=== PATIENT | female | born 1985 | race Caucasian/White ===

== ENCOUNTER 2017-03-27 20:19 | Emergency (ER) | payer MEDICAID ==
[2017-03-27] MEDS ORDERED: Lactated Ringers 1,000 ML IV ONE ×2 (20:45→22:01)
[2017-03-27] MEDS ORDERED: Ondansetron 4 MG Tab.DIS PO ONE (20:46)
[2017-03-27] MEDS ORDERED: Acetaminophen 500 MG Tab PO ONE (20:46)
--- NOTE | 2017-03-27 22:07 | EDM.PDOC ---
ED HPI GENERAL MEDICAL PROBLEM - General Chief Complaint: Fever Stated Complaint: FEVER NOTHING TO EAT SINCE YESTERDAY Time Seen by Provider: 03/27/17 21:00 Source of Information: Reports: Patient, Old Records, RN History Limitations: Reports: No Limitations - History of Present Illness INITIAL COMMENTS - FREE TEXT/NARRATIVE: 31 yo female here with low grade fever, body aches, light-headedness since yesterday. This is the first time she has been seen. Reports nausea without vomiting. No abdominal pain. Onset Date: 03/25/17 Duration: Day(s):, Getting Worse Location: Reports: Generalized Quality: Reports: Ache Severity: Moderate Improves with: Reports: None Worsens with: Reports: Other (time) Context: Reports: Other (unknown) Associated Symptoms: Reports: Cough (minimal), Fever/Chills (low grade?), Loss of Appetite, Nausea/Vomiting (no vomiting), Weakness. Denies: Shortness of Breath Treatments PAINTING MANAGER: Reports: Other (see below) (cold med, OTC) - Related Data Allergies Allergy/AdvReac Type Severity Reaction Status Date / Time No Known Allergies Allergy Verified 02/12/13 20:16 Home Meds: Home Meds NK [No Known Home Meds] 02/12/13 [History] Past Medical History - Past Health History Medical/Surgical History: Denies Medical/Surgical History Social & Family History - Tobacco Use Years of Tobacco use: 10 Packs/Tins Daily: 0.2 - Recreational Drug Use Recreational Drug Use: No ED ROS GENERAL - Review of Systems Review Of Systems: See Below Constitutional: Reports: No Symptoms HEENT: Reports: Other (sensitive to light) Respiratory: Reports: Cough (infrequent). Denies: Shortness of Breath, Wheezing , Pleuritic Chest Pain, Sputum, Hemoptysis Cardiovascular: Reports: Lightheadedness Endocrine: Reports: No Symptoms GI/Abdominal: Reports: Decreased Appetite, Nausea. Denies: Black Stool, Bloody Stool, Constipation, Diarrhea, Distension, Flatus, Hematemesis, Hematochezia, Melena, Vomiting : Reports: No Symptoms Musculoskeletal: Reports: Neck Pain (stiffness.) Skin: Reports: No Symptoms Neurological: Reports: Headache ED EXAM, GENERAL - Physical Exam Exam: See Below Exam Limited By: No Limitations General Appearance: Alert, WD/WN, No Apparent Distress, Lethargic Eye Exam: Bilateral Eye: Normal Inspection, Other (photophobia) Ears: Normal External Exam, Normal Canal, Hearing Grossly Normal, Normal TMs Ear Exam: Bilateral Ear: Auricle Normal, Canal Normal, TM normal Nose: Normal Inspection, Normal Mucosa, No Blood Throat/Mouth: Normal Inspection, Normal Lips, Normal Oropharynx, Normal Voice, No Airway Compromise Head: Atraumatic, Normocephalic Neck: Normal Inspection, Supple, Non-Tender Respiratory/Chest: No Respiratory Distress, Lungs Clear, Normal Breath Sounds, No Accessory Muscle Use Cardiovascular: Regular Rate, Rhythm, No Edema GI/Abdominal: Normal Bowel Sounds, Soft, Non-Tender, No Distention Back Exam: Normal Inspection. No: CVA Tenderness (R), CVA Tenderness (L) Extremities: Normal Inspection, Normal Range of Motion, Non-Tender, No Pedal Edema Neurological: Alert, Oriented, CN II-XII Intact, Normal Cognition, No Motor/ Sensory Deficits Psychiatric: Normal Affect, Normal Mood Skin Exam: Warm, Dry, Intact, Normal Color, No Rash Lymphatic: No Adenopathy Course - Vital Signs Text/Narrative:: LR 1000 ml IV x 2, Zofran 4 mg po, acetaminophen 1000 mg po, Toradol 30 mg IV, Dilaudid 0.5 mg IV Offered admission, declined. Last Recorded V/S: Last Vital Signs Temp 37.2 C 03/27/17 20:25 Pulse 69 03/27/17 20:25 Resp 18 03/27/17 20:25 BP 151/89 H 03/27/17 20:25 Pulse Ox 100 03/27/17 20:25 - Orders/Labs/Meds Labs: Laboratory Tests 03/27/17 Range/Units 21:35 WBC 3.0 L (4.5-12.0) X10-3/uL RBC 4.29 (3.23-5.20) x10(6)uL Hgb 13.2 (11.5-15.5) g/dL Hct 38.6 (30.0-51.3) % MCV 90.0 (80-96) fL MCH 30.7 (27.7-33.6) pg MCHC 34.9 (32.2-35.4) g/dL RDW 11.9 (11.5-15.5) % Plt Count 148 (125-369) X10(3)uL MPV 10.6 H (7.4-10.4) fL Add Manual Diff Yes Neutrophils % (Manual) 62 (46-82) % Band Neutrophils % 1 (0-6) % Lymphocytes % (Manual) 24 (13-37) % Monocytes % (Manual) 13 H (4-12) % Meds: Medications Discontinued Medications Generic Name Dose Route Start Last Admin Trade Name Demetrius PRN Reason Stop Dose Admin Acetaminophen 1,000 mg 03/27/17 20:46 03/27/17 20:55 Tylenol Extra Strength PO 03/27/17 20:47 1,000 mg ONETIME ONE Administration Hydromorphone HCl 0.5 mg 03/27/17 23:19 Dilaudid IVPUSH 03/27/17 23:20 ONETIME ONE Lactated Ringer's 1,000 mls @ 1,000 mls/hr 03/27/17 20:45 03/27/17 21:03 Ringers, Lactated IV 03/27/17 21:44 1,000 mls/hr BOLUS ONE Administration Lactated Ringer's 1,000 mls @ 1,000 mls/hr 03/27/17 22:01 03/27/17 22:11 Ringers, Lactated IV 03/27/17 23:00 1,000 mls/hr BOLUS ONE Administration Ketorolac Tromethamine 30 mg 03/27/17 22:44 03/27/17 22:50 Toradol IVPUSH 03/27/17 22:45 30 mg ONETIME ONE Administration Ondansetron HCl 4 mg 03/27/17 20:46 03/27/17 20:55 Zofran Odt PO 03/27/17 20:47 4 mg ONETIME ONE Administration Departure - Departure Time of Disposition: 23:45 Disposition: Home, Self-Care 01 Condition: Fair Clinical Impression: Viral encephalitis - Discharge Information Referrals: Dianna Cheng NP [Primary Care Provider] - Forms: ED Department Discharge
[2017-03-27] MEDS ORDERED: Ketorolac 30 MG/ML SDV IVPUSH ONE (22:44)
[2017-03-27] MEDS ORDERED: HYDROmorphone 2 MG/ML SDV IVPUSH ONE (23:19)
[2017-03-27] MEDS ORDERED: Sodium Chloride 0.9% 10 ML Syringe FLUSH PRN (23:34)
[2017-03-28 00:14] VITALS: BP 138/81
== END 2017-03-28 | disposition home or self-care (01) ==
LOC: FB.ED 20:19
DX: A86 Unspecified viral encephalitis (principal)
CPT/HCPCS: 36415; 85025; 87804; 87807; 96361; 96374; 96375; 99283; A9270; J1170; J1885; J7050; J7120

== ENCOUNTER 2017-03-29 15:41 | Observation (INO) | payer MEDICAID ==
[2017-03-29] MEDS ORDERED: HYDROmorphone 2 MG/ML SDV IVPUSH ONE (15:54)
[2017-03-29] MEDS ORDERED: Metoclopramide 10 MG/2 ML SDV IVPUSH ONE (15:54)
[2017-03-29] MEDS ORDERED: Ketorolac 30 MG/ML SDV IVPUSH ONE (15:55)
[2017-03-29] MEDS ORDERED: diphenhydrAMINE 50 MG/ML SDV IVPUSH ONE (15:55)
[2017-03-29] MEDS ORDERED: Acetaminophen 1,000 MG in Premix Bag 1 BAG IV ONE (16:47)
[2017-03-29] MEDS ORDERED: Ondansetron 4 MG/2 ML SDV IV PRN (19:04)
[2017-03-29] MEDS ORDERED: Ondansetron 4 MG Tab.DIS PO PRN (19:04)
[2017-03-29] MEDS ORDERED: cefTRIAXone 2 GM in Sodium Chloride 0.9% 100 ML IV SCH (19:15)
[2017-03-29] MEDS: Enoxaparin 40 MG/0.4 ML Syringe SUBCUT SCH (20:30)
[2017-03-29] MEDS: cefTRIAXone 2 GM Vial IV SCH (21:24)
[2017-03-29] MEDS: Acetaminophen/oxyCODONE 325-5 MG Tab PO PRN (22:27)
[2017-03-30] MEDS: Sodium Chloride 0.9% 1,000 ML IV SCH ×3 (03:24→22:47)
[2017-03-30] MEDS: cefTRIAXone 2 GM Vial IV SCH ×2 (08:05→21:29)
--- NOTE | 2017-03-30 09:13 | CT ---
INDICATION: Unresponsive. Pain back of neck to front of head. CT HEAD WITHOUT CONTRAST: Serial contiguous 2.5 and 5-mm sections were obtained through the brain without contrast and revealed no shift of midline structures, ventricular abnormalities, or abnormal areas of density intracranially. No bleeding site or hematoma was seen. Total Exam DLP = 949.36 mGy-cm. Paranasal sinuses and, for the most part, mastoid air cells appear to be well aerated. No cranial abnormality was suggested. IMPRESSION: Normal CT brain. Report was given in person to Dr. Benitez at 1620 hours, 03/29/2017. [facility]
--- NOTE | 2017-03-30 09:22 | PCM.HP ---
H&P History of Present Illness - General Date of Service: 03/30/17 Admit Problem/Dx: Admission Diagnosis/Problem Admission Diagnosis/Problem Headache - History of Present Illness Initial Comments - Free Text/Narative: 31-year-old female who came in because of fever, headache, back pain and lethargy. She had first been seen because of a cough and upper sputum symptoms, and a chest x-ray revealed possible pneumonia of the left lower lobe. She took 1 dose of azithromycin the day prior to presentation. A day later- yesterday- she presented to the clinic with headache fever of 102.2 F,looking lethargic obtunded. She had come into contact with her sister who apparently had influenza A over the weekend. She did not have any chest pain shortness of breath. In the emergency room she had a lumbar puncture was given fluids and admitted for observation. In the morning when I saw her this morning she did not have any more headache, fever subsided she was feeling better. HEAD Pain Score (Numeric/FACES): 2 - Related Data Allergies/Adverse Reactions: Allergies Allergy/AdvReac Type Severity Reaction Status Date / Time amoxicillin [From Augmentin] Allergy Diarrhea Verified 03/29/17 19:20 clavulanic acid Allergy Diarrhea Verified 03/29/17 19:20 [From Augmentin] Home Medications: Home Meds Acetaminophen/oxyCODONE [Percocet 325-5 MG] 1 - 2 tab PO Q4H PRN #20 tab [Rx] Ondansetron [Zofran ODT] 4 mg PO Q6H PRN #7 tab.dis 03/27/17 [Rx] Azithromycin [Zithromax] 250 mg PO DAILY 03/29/17 [History] Norgestimate-Ethinyl Estradiol [Wood-Linyah 28 Tablet] 1 tab PO DAILY 03/29/17 [ History] Lysine 500 mg PO ASDIRECTED PRN 03/30/17 [History] Vitamin C/Biotin [Hair, Skin and Nails Gummies] 2 tab CHEW DAILY 03/30/17 [ History] Past Medical History - Past Health History Medical/Surgical History: Denies Medical/Surgical History Genitourinary History: Reports: Other (See Below) Other Genitourinary History: kidney stones Oncologic (Cancer) History: Reports: Other (See Below) Other Oncologic History: breast reduction Social & Family History - Tobacco Use Smoking Status *Q: Former Smoker Years of Tobacco use: 10 Packs/Tins Daily: 0.2 Used Tobacco, but Quit: Yes Month Tobacco Last Used: 120 - Caffeine Use Caffeine Use: Reports: Coffee, Energy Drinks, Soda - Recreational Drug Use Recreational Drug Use: No H&P Review of Systems - Review of Systems: Review Of Systems: ROS reveals no pertinent complaints other than HPI. General: Reports: No Symptoms HEENT: Reports: No Symptoms Pulmonary: Reports: No Symptoms Cardiovascular: Reports: No Symptoms Gastrointestinal: Reports: No Symptoms Genitourinary: Reports: No Symptoms Musculoskeletal: Reports: No Symptoms Skin: Reports: No Symptoms Psychiatric: Reports: No Symptoms Neurological: Reports: No Symptoms Hematologic/Lymphatic: Reports: No Symptoms Immunologic: Reports: No Symptoms Exam - Exam Exam: See Below - Vital Signs Vital Signs: Last Vital Signs Temp 98.1 F 03/30/17 08:00 Pulse 59 L 03/30/17 08:00 Resp 17 03/30/17 08:00 BP 103/52 L 03/30/17 08:00 Pulse Ox 100 03/30/17 08:00 Weight: 78.471 kg - Exam General: Alert, Oriented, 4 HEENT: PERRLA, Hearing Intact, Mucosa Moist & Hamill, Nares Patent, Normal Nasal Septum, Posterior Pharynx Clear, Conjunctiva Clear, EOMI, EACs Clear, TMs Clear Neck: Supple, Trachea Midline, 2 Lungs: Clear to Auscultation, Normal Respiratory Effort Cardiovascular: Regular Rate, Regular Rhythm GI/Abdominal Exam: Normal Bowel Sounds, Soft, Non-Tender, No Organomegaly, No Distention, No Abnormal Bruit, No Mass, Pelvis Stable (Female) Exam: Deferred Rectal (Female) Exam: Deferred Back Exam: Normal Inspection, Full Range of Motion, NT Extremities: Normal Inspection, Normal Range of Motion, Non-Tender, No Pedal Edema, Normal Capillary Refill Skin: Warm, Dry, Intact Neurological: Cranial Nerves Intact, Reflexes Equal Bilateral Neuro Extensive - Mental Status: Alert, Oriented x3, Normal Mood/Affect, Normal Cognition Neuro Extensive - Motor, Sensory, Reflexes: CN II-XII Intact, Normal Gait, Normal Reflexes Psychiatric: Alert, Normal Affect, Normal Mood - Patient Data Lab Results Last 24 hrs: Laboratory Results - last 24 hr 03/30/17 Range/Units 06:35 WBC 1.2 L* (4.5-12.0) X10-3/uL RBC 4.16 (3.23-5.20) x10(6)uL Hgb 12.3 (11.5-15.5) g/dL Hct 37.4 (30.0-51.3) % MCV 89.9 (80-96) fL MCH 29.5 (27.7-33.6) pg MCHC 32.8 (32.2-35.4) g/dL RDW 11.4 L (11.5-15.5) % Plt Count 143 (125-369) X10(3)uL MPV 10.8 H (7.4-10.4) fL Add Manual Diff Yes Neutrophils % (Manual) 40 L (46-82) % Lymphocytes % (Manual) 54 H (13-37) % Monocytes % (Manual) 6 (4-12) % Result Diagrams: 03/30/17 06:35 03/29/17 16:15 Imaging Impressions Last 24 hrs: I reviewed a chest x-ray image from yesterday that showed left lower lobe pneumonia. Influenza was negative 2. Spinal tap revealed no white cells in the Gram stain *Q Meaningful Use (ADM) - VTE *Q VTE Criteria *Q: - Stroke *Q Stroke Criteria *Q: - AMI *Q AMI Criteria *Q: - Problem List (1) CAP (community acquired pneumonia) SNOMED Code(s): 401068689 ICD Code: J18.9 - PNEUMONIA, UNSPECIFIED ORGANISM Status: Acute Current Visit: Yes (2) Influenza SNOMED Code(s): 0851338 ICD Code: J11.1 - FLU DUE TO UNIDENTIFIED INFLUENZA VIRUS W OTH RESP MANIFEST Status: Acute Current Visit: Yes (3) Leukopenia SNOMED Code(s): 33430926 ICD Code: D72.819 - DECREASED WHITE BLOOD CELL COUNT, UNSPECIFIED Status: Acute Current Visit: Yes Qualifiers: Leukopenia type: lymphocytopenia Qualified Code(s): D72.810 - Lymphocytopenia (4) Viral encephalitis SNOMED Code(s): 98783507 ICD Code: A86 - UNSPECIFIED VIRAL ENCEPHALITIS Status: Acute Current Visit: No Problem List Initiated/Reviewed/Updated: Yes Orders Last 24hrs: Active Orders 24 hr Category Date Time Status BASIC METABOLIC PANEL,BMP [CHEM] AM Lab 03/31/17 05:11 Ordered CBC WITH AUTO DIFF [HEME] AM Lab 03/31/17 05:11 Ordered Acetaminophen/oxyCODONE [Percocet 325-5 MG] Med 03/29/17 19:30 Active 1 - 2 tab PO Q4H PRN Azithromycin [Zithromax] 500 mg Med 03/30/17 09:30 Ordered Sodium Chloride 0.9% [Normal Saline] 250 ml IV Q24H Norgestimate-Ethinyl Estradiol [Wood-Linyah 28 Tablet] Med 03/30/17 09:00 Pending 1 tab PO DAILY cefTRIAXone [Rocephin] Med 03/29/17 20:00 Active 2 gm IV Q12H Medication Orders Acetaminophen (Tylenol) 650 mg PO Q4H PRN PRN Reason: Pain (Mild 1-3)/fever Ceftriaxone Sodium (Rocephin) 2 gm IV Q12H [facility] Last Admin: 03/30/17 08:05 Dose: 2 gm Admin: 03/29/17 21:24 Dose: 2 gm Enoxaparin Sodium (Lovenox) 40 mg SUBCUT Q24H [facility] Last Admin: 03/29/17 20:30 Dose: 40 mg Sodium Chloride (Normal Saline) 1,000 mls @ 125 mls/hr IV ASDIRECTED [facility] Last Admin: 03/30/17 03:24 Dose: 125 mls/hr Azithromycin 500 mg/ Sodium (Chloride) 250 mls @ 250 mls/hr IV Q24H [facility] Non-Formulary Medication (Norgestimate-Ethinyl Estradiol [Wood-Linyah 28 Tablet] ) 1 tab PO DAILY JE Ondansetron HCl (Zofran) 4 mg IV Q4H PRN PRN Reason: Nausea/Vomiting Ondansetron HCl (Zofran Odt) 4 mg PO Q4H PRN PRN Reason: nausea, able to take PO Oxycodone/Acetaminophen (Percocet 325-5 Mg) 1 - 2 tab PO Q4H PRN PRN Reason: Pain Last Admin: 03/29/17 22:27 Dose: 2 tab Assessment/Plan Comment:: I will start the patient azithromycin IV, fluids and pain control regimen. She did express interest to go home later today but I suggested we repeat a CBC tomorrow morning keep overnight and discharge her tomorrow
[2017-03-30] MEDS ORDERED: Azithromycin 500 MG in Sodium Chloride 0.9% 250 ML IV SCH (10:00)
[2017-03-30] MEDS: Acetaminophen 325 MG Tab PO PRN ×2 (12:11→23:19)
[2017-03-30] MEDS: Acetaminophen/oxyCODONE 325-5 MG Tab PO PRN (15:48)
--- NOTE | 2017-03-30 16:07 | ER ---
DATE SEEN: 03/29/2017 TIME SEEN: The patient was seen on arrival at 1545 hours. HISTORY OF PRESENT ILLNESS: This 31-year-old comes in with history onset of nausea without vomiting and severe headache and diarrhea x1 today. She has been sick, was seen in the clinic, started on azithromycin yesterday. She is markedly worse, she has severe headache and neck stiffness with it. She has history 2-4 days ago, onset of fever blister in right corner of her mouth. She has herpes oralis symptoms in the past. No history of herpes vaginalis or vaginitis. Current medication is azithromycin, last taken today and control pills. She has not been sexually active for many months. Last menstrual period within the last several days. She has acetaminophen with oxycodone 325/5 p.r.n. headache given to her yesterday in the clinic. PAST MEDICAL HISTORY: Negative. No diabetes. No heart disease, high blood pressure, asthma, or other serious illnesses. The patient lives with her sister. She is a 2, para 2-0-0-2. Her sister had viral illness which is influenza, approximately 2-3 days ago. The patient's viral study was negative. Repeat swab test performed today with possibility (30% of the swabs are positive with a false negative rate of up to 60% with the type of swabs used in our lab). The patient has had influenza vaccine. ALLERGIES: Amoxicillin and Augmentin. REVIEW OF SYSTEMS: Otherwise negative except as noted with headache and difficulty with vision, mild to moderate photophobia, mild sore throat. Denies sinusitis, mild rhinorrhea. Marked stiffness in the neck. No shortness of breath. Has mild cough, nonproductive. No chest pain or irregular heartbeat. GI: As noted above. Diarrhea x1. No vomiting. : As noted above. Last menstrual period several days ago. MUSCULOSKELETAL: Aches, general. PHYSICAL EXAMINATION: VITAL SIGNS: Blood pressure 177/112 on arrival, heart rate 88, respirations 30, oxygen saturation 100%, pulse 88. The patient's weight 77.5 kg, BMI is 25.3 kg/m2. Subsequent blood pressure came down to 124/54 as she received pain medicine for headache. Temperature is still elevated at 39.3 and the patient received Tylenol. HEENT: Pharynx without erythema. Throat culture obtained. TMs, normal appearance. Marked neck stiffness. Minimal cervical adenopathy. No sinus pressure or tenderness. No compromised vision. EOMs are normal. LUNGS: Clear without rales, rhonchi, or wheezes. HEART: S1, S2. No murmur. No sinus tachycardia noted. ABDOMEN: Soft. No guarding. Minimal abdominal discomfort. EXTREMITIES: Without abnormality. No pedal edema. Pulses in upper and lower extremities are normal. She has mild myalgia, generalized in upper and lower extremities. Gait appropriate. Not dizzy. The patient has marked neck stiffness, lumbar puncture was performed, opening pressure was 46, closing pressure of 39. Clear fluid noted. CSF negative for cells and bacteria on Gram stain. Since the patient has not had Lyme disease or Rickettsial or other significant tick borne lesions, those studies were not ordered. Chest x-ray was not performed as the patient has clear lungs. CT of the head was performed to rule out any [employer] CONSULTANT bleed. There is no abnormality seen on CT. ASSESSMENT: 1. No clear evidence for encephalitis or meningitis. However, she still could have aseptic meningitis. 2. Neck stiffness has improved after the patient resumed Dilaudid and her pressures have come down to normal. 3. The patient's hypertension response is secondary to pain. 4. Photophobia suggesting a migraine, but it is difficult to say if she has a migraine on top of possible encephalitis or aseptic meningitis. At this point, I presume there is a migraine component to this, but she does not have a past medical history of migraines. LABORATORY RESULTS: Today's white count is 2,700, PMNs 60, lymphocytes 28, monos 13, the latter suggests a viral component with leukopenia. Calcium 7.9, probably secondary to hyperventilation. Today, when she was initially examined, the patient had spasticity, felt related to hyperventilation. Mild transaminasemia, with AST 70, ALT 90 without bilirubin elevation. No suggestion of jaundice or hepatitis. She may have a viral component other than hepatitis, but doubt hepatitis B or hepatitis A or hepatitis C. Total protein 5.7, albumin is 2.9, both of these are decreased. Urinalysis; greater than 100 rbc's, few urine bacteria, moderate. LES is negative. Large urine occult ketones. Thought the patient's hematuria is secondary to menses. Ketonuria secondary to dehydration, acidosis, and lack of eating. The patient's CSF, glucose 54, protein is 31. No cells, Gram stain is negative. ASSESSMENT: Rule out aseptic meningitis with bacterial component. Needs to be treated prophylactically. PLAN: 1. Treat with acyclovir 10 mg/kg q.8 hours and dexamethasone 1 dose. I did not see the data or the list, I did choose 16 mg IV. UpToDate was not clear on the dosage. One dose 3 Rocephin 2 g q.12 hours. vancomycin. IV hydration. 2. Hypocalcemia, etiology secondary to hyperventilation with mild spasticity. 3. Rule out sepsis. 4. Mild transaminasemia, etiology indeterminate, probably viral mediated without hepatitis B or C or A. 5. Blood cultures are pending. CSF culture is pending. The patient is hospitalized, received IV therapy when she had her Dilaudid IV for headache the pain was reduced 1/10. She has felt much better. 6. Neck rigidity and meningismus relented. Status discussed with Dr. Valarie Gonzalez. She is aware of the patient's admission orders performed by myself as this is the end of the day and she has left for the day. Repeat influenza test was performed which was negative. /[id number] SCARLETT/TANYA AVILA
[2017-03-30] MEDS: Enoxaparin 40 MG/0.4 ML Syringe SUBCUT SCH (21:30)
[2017-03-31] MEDS: Sodium Chloride 0.9% 1,000 ML IV SCH (06:46)
[2017-03-31] MEDS: cefTRIAXone 2 GM Vial IV SCH (07:48)
[2017-03-31] MEDS: Acetaminophen/oxyCODONE 325-5 MG Tab PO PRN (08:59)
[2017-03-31] MEDS ORDERED: Ketorolac 30 MG/ML SDV IVPUSH ONE (09:10)
[2017-03-31 09:16] VITALS: BP 131/80
--- NOTE | 2017-03-31 10:02 | PN ---
DATE SEEN: 03/31/2017 CHIEF COMPLAINT: Headache and cough. HISTORY OF PRESENT ILLNESS: This is a 31-year-old female admitted for pneumonia, viral encephalitis, and possibly influenza. She was also found to have severe leukopenia. Overnight, she slept well. This morning, she still has a headache that is [id number]-up-bmkyixhe in intensity. Denies fever. Has mild sore throat and a cough that is nonproductive. REVIEW OF SYSTEMS: All other systems unremarkable. SOCIAL HISTORY: Quit smoking a month ago. MEDICATIONS: Reviewed. PHYSICAL EXAMINATION: GENERAL: She is not in any cardiopulmonary distress. VITAL SIGNS: Her blood pressure is 121/71, pulse is 52, and temperature is 98.1, max. Oxygen is 95% room air. CARDIOVASCULAR: Normal. MENTAL STATUS: Alert. NEUROLOGIC: Nonfocal with a negative Kernig's. SKIN: No pallor or jaundice. LABORATORY DATA: White cell count is up to 3.2 this morning. FINAL IMPRESSION: 1. Community-acquired pneumonia. 2. Influenza syndrome. 3. Leukopenia, possibly due to viral infection. PLAN: Ketorolac 30 mg IV once. I planned to discharge her home this morning. She will go home on Tamiflu 75 mg b.i.d. for 5 days, Omnicef 300 mg p.o. b.i.d. to complete the course for pneumonia, and she will also go home on Ultram and acetaminophen to use p.r.n. for headache. I would like her to be seen again on Monday at the office by Dianna Cheng. /[id number] ROBBY/TANYA
== END 2017-03-31 11:05 | disposition home or self-care (01) ==
LOC: FB.ED 15:41 → FB.MS 19:04
PROVIDERS: ADMIT Emergency Medicine; ATTEND Family Medicine
DX: J11.00 Influenza due to unidentified influenza virus with unspecified type of pneumonia (principal); J18.9 Pneumonia, unspecified organism; D72.819 Decreased white blood cell count, unspecified; Z79.899 Other long term (current) drug therapy
CPT/HCPCS: 36415; 62270; 70450; 80048; 80053; 81001; 82945; 84157; 85025; 87040; 87070; 87205; 87529; 87804; 96361; 96365; 96367; 96372; 96375; 99285; A9270; G0378; J0131; J0133; J0456; J0696; J1100; J1170; J1200; J1650; J1885; J2405; J2765; J7030; J7040; J7050; 96374

== ENCOUNTER 2017-08-01 07:44 | Day surgery (SDC) | payer MEDICAID ==
[2017-08-01] MEDS ORDERED: Lactated Ringers 1,000 ML IV SCH (07:45)
[2017-08-01] MEDS ORDERED: Sodium Chloride 0.9% 10 ML Syringe FLUSH PRN (07:45)
[2017-08-01] MEDS ORDERED: Midazolam 1 MG/ML 2 ML SDV IV ONE (09:15)
[2017-08-01] MEDS ORDERED: Propofol 200 MG/20 ML SDV IV ONE (09:15)
--- NOTE | 2017-08-01 09:56 | PCM.OPNOTE ---
- General Post-Op/Procedure Note Date of Surgery/Procedure: 08/01/17 Operative Procedure(s): egd with bx. c scope Findings: gastritis esophagitis internal hemorrhoids Pre Op Diagnosis: hx of hematochezia. constipation. abd pain and bloating. hx of melena Post-Op Diagnosis: gastritis. esophagitis. internal hemorrhoids Anesthesia Technique: [facility] [place] Primary Surgeon: Noel Garay Anesthesia Provider: Angel Doran Pathology: stomach and esophagus Condition: Good Free Text/Narrative:: see dictation #[id number]
[2017-08-01 12:40] VITALS: BP 128/74
--- NOTE | 2017-08-01 13:42 | OR ---
DATE OF OPERATION: 08/01/2017 SURGEON: Noel Garay MD PROCEDURES PERFORMED: Colonoscopy as well as upper endoscopy. PREOPERATIVE DIAGNOSES: History of abdominal pain and bloating with questionable episode of melena, history of hematochezia and constipation. POSTOPERATIVE DIAGNOSES: Gastritis, esophagitis, as well as internal hemorrhoids. INDICATIONS FOR PROCEDURE: This is a 31-year-old white female who presented with a myriad of complaints, as mentioned above. She was offered and accepted upper and lower endoscopy. DESCRIPTION OF PROCEDURE: After an excellent IV sedation was administered, the bite block was inserted. The flexible endoscope was passed without difficulty down the patient's esophagus and into the stomach. The stomach was insufflated. Scope was passed through the pylorus, to the second portion of the duodenum, and slowly withdrawn. The following findings were noted. Duodenum was unremarkable. Stomach demonstrated some diffuse gastritis. Multiple biopsies were taken. Mild erythema was also noted in the distal esophagus and biopsies were taken as well. This involved the area just above the GE junction. Remainder of the esophageal exam was unremarkable. Stomach was deflated. The scope was removed. Our attention was then turned to the colon. Digital rectal exam was performed. No marked abnormality was noted. Flexible colonoscope was inserted and advanced to the cecum without difficulty. The following findings were noted. Ascending colon, unremarkable. Transverse colon, unremarkable. Descending colon, unremarkable. Sigmoid and rectum, unremarkable. On retroflexing the scope, there was some evidence of internal hemorrhoids. A photo was taken. The patient tolerated the procedure well and was taken to Recovery in a good condition. /[id number] /MODL
== END 2017-08-01 11:00 | disposition home or self-care (01) ==
LOC: FB.SDS 07:44
PROVIDERS: ATTEND Surgery
DX: K92.1 Melena (principal); R10.84 Generalized abdominal pain; K59.00 Constipation, unspecified; K21.9 Gastro-esophageal reflux disease without esophagitis; K29.50 Unspecified chronic gastritis without bleeding; K20.8 Other esophagitis; Z87.891 Personal history of nicotine dependence; Z79.899 Other long term (current) drug therapy; K64.8 Other hemorrhoids; Z88.0 Allergy status to penicillin
CPT/HCPCS: 81025; 88305; 88342; J2250; J2704; J7120

== ENCOUNTER 2022-04-28 23:13 | Emergency (ER) | payer MEDICAID ==
[2022-04-28] MEDS ORDERED: Ketorolac 30 MG/ML SDV IVPUSH ONE (23:24)
[2022-04-28] MEDS ORDERED: Ondansetron 4 MG/2 ML SDV IVPUSH ONE (23:24)
[2022-04-28] MEDS ORDERED: Alum Hydroxide/Mag Hydroxide 30 ML, Lidocaine 2% 15 ML PO ONE ×2 (23:24)
[2022-04-28] MEDS ORDERED: Sodium Chloride 0.9% 1,000 ML IV ONE (23:24)
[2022-04-28] MEDS: Sodium Chloride 0.9% 10 ML Syringe FLUSH PRN (23:30)
[2022-04-28 23:47] LABS: ESTIMATED GFR 99 mL/min (>60)
[2022-04-29] MEDS ORDERED: Iopamidol 755 Mg/ML 100 ML Bottle IV ONE (00:53)
[2022-04-29] MEDS ORDERED: Pantoprazole 40 MG Vial IVPUSH ONE (00:59)
[2022-04-29] MEDS: Sodium Chloride 0.9% 10 ML Syringe FLUSH PRN ×2 (01:09→01:37)
[2022-04-29] MEDS ORDERED: Dicyclomine 10 MG Cap PO ONE (01:31)
[2022-04-29] MEDS ORDERED: Ketorolac 30 MG/ML SDV ONE (01:36)
[2022-04-29 02:20] VITALS: BP 147/88; PULSE 94
== END 2022-04-29 01:58 | disposition home or self-care (01) ==
LOC: FB.ED 23:13
DX: K29.00 Acute gastritis without bleeding (principal); K31.89 Other diseases of stomach and duodenum; R79.89 Other specified abnormal findings of blood chemistry; R79.82 Elevated C-reactive protein (CRP); E27.8 Other specified disorders of adrenal gland; K21.9 Gastro-esophageal reflux disease without esophagitis; Z79.899 Other long term (current) drug therapy; Z90.49 Acquired absence of other specified parts of digestive tract
CPT/HCPCS: 36415; 74177; 80053; 81001; 83690; 85025; 86140; 96361; 96374; 96375; 99283; 99284-25; A9270-GY; C9113; J1885; J3490; J7030; Q9967

== ENCOUNTER 2022-05-13 06:40 | Emergency (ER) | payer MEDICAID ==
[2022-05-13] MEDS: Sodium Chloride 0.9% 10 ML Syringe FLUSH PRN ×2 (06:50→07:14)
[2022-05-13] MEDS ORDERED: Ondansetron 4 MG/2 ML SDV IVPUSH ONE (06:52)
[2022-05-13] MEDS ORDERED: HYDROmorphone 2 MG/ML SDV IVPUSH ONE (06:52)
[2022-05-13] MEDS ORDERED: Pantoprazole 40 MG Vial IVPUSH ONE (06:55)
[2022-05-13 07:08] LABS: ESTIMATED GFR 86 mL/min (>60)
[2022-05-13] MEDS ORDERED: Gadoteridol 279.3 MG/ML 20 ML SDV IV ONE (07:52)
[2022-05-13] MEDS ORDERED: Dicyclomine 10 MG Cap PO STA (08:05)
[2022-05-13] MEDS ORDERED: Sodium Chloride 0.9% 1,000 ML IV SCH (08:15)
[2022-05-13] MEDS ORDERED: HYDROmorphone 2 MG/ML SDV IVPUSH STA (10:24)
[2022-05-13 11:52] VITALS: BP 116/69; PULSE 85
== END 2022-05-13 11:10 | disposition home or self-care (01) ==
LOC: FB.ED 06:40
DX: N39.0 Urinary tract infection, site not specified (principal); B27.00 Gammaherpesviral mononucleosis without complication; K21.9 Gastro-esophageal reflux disease without esophagitis; Z87.891 Personal history of nicotine dependence; Z79.899 Other long term (current) drug therapy
CPT/HCPCS: 74183; 80053; 81001; 83690; 85025; 87086; 96361; 96374; 96375; 96376; 99284-25; A9270-GY; A9579; C9113; J1170; J2405; J3490; J7030

== ENCOUNTER 2022-11-28 18:44 | Observation (INO) | payer MEDICAID ==
[2022-11-28] MEDS ORDERED: HYDROmorphone 2 MG/ML SDV IVPUSH ONE (19:30)
[2022-11-28] MEDS ORDERED: Naloxone 0.4 MG/ML SDV IVPUSH PRN (19:30)
[2022-11-28] MEDS ORDERED: Ketorolac 30 MG/ML SDV IVPUSH ONE (19:30)
[2022-11-28 21:36] LABS: BASOPHILS PERCENT AUTO 0.3 % (0.2-1.5); EOSINOPHILS PERCENT AUTO 0.4 % (0.6-8.1); HEMATOCRIT 41.1 % (34.2-48.2); LYMPHOCYTES ABSOLUTE AUTO 1.6 x10-3/uL (1.0-4.4); LYMPHOCYTES PERCENT AUTO 21.3 % (18.4-52.1); MEAN CORPUSCULAR HEMOGLOBIN 30.9 pg (23.9-33.9); MEAN CORPUSCULAR HGB CONC 34.1 g/dL (31.9-34.8); MEAN CORPUSCULAR VOLUME 90.6 fL (76.7-100.5); MEAN PLATELET VOLUME 10.1 fL (7.1-12.4); MONOCYTES ABSOLUTE AUTO 0.6 x10-3/uL (0.3-1.0); NEUTROPHILS ABSOLUTE AUTO 5.3 x10-3/uL (1.5-6.3); PLATELET COUNT,PLT 264 x10(3)uL (151-488); RED BLOOD CELL COUNT 4.54 x10(6)uL (3.60-5.20); RED CELL DISTRIBUTION WIDTH 12.5 % (12.3-16.5); WHITE BLOOD CELL COUNT,WBC 7.6 x10-3/uL (3.0-10.3)
[2022-11-28 21:42] LABS: BLOOD UREA NITROGEN,BUN 16 mg/dL (7-18); CALCIUM 9.1 mg/dL (8.6-10.2); CARBON DIOXIDE,CO2 26 mmol/L (21-32); CHLORIDE,CL 106 mmol/L (100-110); CREATININE 0.8 mg/dL (0.55-1.02); EST CRCL DRUG DOSING (CG) 99.01 mL/min; ESTIMATED GFR 98 mL/min (>60); GLUCOSE RANDOM 98 mg/dL (80-116); POTASSIUM,K 3.9 mmol/L (3.5-5.3); SODIUM,NA 143 mmol/L (135-145)
[2022-11-28 21:48] LABS: A/G RATIO 1.1; ALANINE AMINOTRANSFERASE,ALT 91 U/L (12-36); ALBUMIN 3.7 g/dL (3.5-5.2); ALKALINE PHOSPHATASE 103 IU/L (56-112); ASPARTATE AMNIOTRANSFERASE,AST 100 IU/L (5-25); BILIRUBIN TOTAL 0.7 mg/dL (0.1-1.3); PROTEIN TOTAL,TP 7.1 g/dL (6.0-8.0)
[2022-11-28 22:36] LABS: BILIRUBIN,URINE NEGATIVE (NEGATIVE); GLUCOSE,URINE NORMAL (NORMAL); KETONES,URINE 15 mg/dL (NEGATIVE); LEUKOCYTE ESTERASE,URINE NEGATIVE (NEGATIVE); NITRITE,URINE NEGATIVE (NEGATIVE); OCCULT BLOOD,URINE MODERATE (NEGATIVE); PROTEIN,URINE NEGATIVE (NEGATIVE); UROBILINOGEN,URINE NORMAL (NEGATIVE)
[2022-11-28 22:39] LABS: APPEARANCE,URINE SLIGHTLY CLOUDY (CLEAR); BACTERIA,URINE FEW (NS); COLOR,URINE YELLOW (YELLOW); MUCUS,URINE FEW (NS); RBC,URINE 0-5 (0-5); SQUAMOUS EPITHELIAL CELLS,UR FEW (NS,R,O); WBC,URINE 0-5 (0-5)
[2022-11-28] MEDS ORDERED: Acetaminophen 325 MG Tab PO PRN (22:50)
[2022-11-28] MEDS ORDERED: Ondansetron 4 MG/2 ML SDV IV PRN (22:50)
[2022-11-28] MEDS ORDERED: Ketorolac 30 MG/ML SDV IVPUSH PRN (22:50)
[2022-11-28] MEDS ORDERED: Sodium Chloride 0.9% 1,000 ML IV SCH (23:00)
[2022-11-29] MEDS: oxyCODONE 5 MG Tab PO PRN ×3 (00:10→12:31)
[2022-11-29] MEDS: HYDROmorphone 2 MG/ML SDV IVPUSH PRN ×2 (02:08→10:33)
[2022-11-29] MEDS ORDERED: Cyclobenzaprine 10 MG Tab PO ONE (09:01)
[2022-11-29] MEDS ORDERED: Sennosides/Docusate Sodium 50-8.6 MG Tab PO PRN (09:02)
[2022-11-29] MEDS: Ketorolac 30 MG/ML SDV IVPUSH SCH ×2 (10:19→16:21)
[2022-11-29] MEDS ORDERED: Sodium Chloride 0.9% 10 ML Syringe FLUSH PRN (16:21)
[2022-11-29 17:13] VITALS: BP 121/78; PULSE 51
== END 2022-11-29 17:30 | disposition home or self-care (01) ==
LOC: FB.ED 18:44 → UNDOADMOB 23:00 → FB.MS 23:00
PROVIDERS: ADMIT Emergency Medicine; ATTEND Family Medicine
DX: M62.830 Muscle spasm of back (principal); G89.29 Other chronic pain; M54.2 Cervicalgia; K21.9 Gastro-esophageal reflux disease without esophagitis; Z79.899 Other long term (current) drug therapy
CPT/HCPCS: 36415; 72148; 80053; 81001; 81025; 83735; 85025; 96361; 96374; 96375; 96376; 99222; 99238; 99285-25; A9270-GY; G0378; J1170; J1885; J3360; J7030

== ENCOUNTER 2022-12-05 17:29 | Emergency (ER) | payer MEDICAID ==
[2022-12-05] MEDS ORDERED: Morphine 4 MG/ML VIAL IVPUSH ONE (17:46)
[2022-12-05] MEDS ORDERED: Ketorolac 30 MG/ML SDV IVPUSH ONE (17:46)
[2022-12-05] MEDS ORDERED: Lidocaine 4% 1 each Patch TOP STA (17:48)
[2022-12-05] MEDS: Cyclobenzaprine 10 MG Tab PO ONE ×2 (17:49→18:00)
[2022-12-05] MEDS ORDERED: HYDROmorphone 2 MG/ML SDV IVPUSH STA (18:33)
[2022-12-05 20:08] VITALS: BP 125/78; PULSE 74
== END 2022-12-05 20:36 | disposition home or self-care (01) ==
LOC: FB.ED 17:29
DX: M51.34 Other intervertebral disc degeneration, thoracic region (principal); M51.26 Other intervertebral disc displacement, lumbar region; K21.9 Gastro-esophageal reflux disease without esophagitis; Z79.899 Other long term (current) drug therapy
CPT/HCPCS: 72125; 72128; 96374; 96375; 99283; J1170; J1885; J2270; A9270-GY

== ENCOUNTER 2022-12-12 20:09 | Emergency (ER) | payer MEDICAID ==
[2022-12-12] MEDS ORDERED: Ondansetron 4 MG Tab.DIS PO ONE (20:10)
[2022-12-12] MEDS ORDERED: Sulfamethoxazole/Trimethoprim 800-160 MG Tab PO ONE (20:10)
[2022-12-12] MEDS ORDERED: Sodium Chloride 0.9% 10 ML Syringe FLUSH PRN (20:14)
[2022-12-12] MEDS ORDERED: Sodium Chloride 0.9% 1,000 ML IV SCH (20:15)
[2022-12-12 20:31] LABS: BASOPHILS PERCENT AUTO 0.6 % (0.2-1.5); EOSINOPHILS ABSOLUTE AUTO 0.2 x10-3/uL (0.0-0.8); EOSINOPHILS PERCENT AUTO 2.3 % (0.6-8.1); HEMATOCRIT 40.6 % (34.2-48.2); HEMOGLOBIN 14.1 g/dL (11.4-15.5); LYMPHOCYTES ABSOLUTE AUTO 2.3 x10-3/uL (1.0-4.4); LYMPHOCYTES PERCENT AUTO 28.1 % (18.4-52.1); MEAN CORPUSCULAR HEMOGLOBIN 30.8 pg (23.9-33.9); MEAN CORPUSCULAR HGB CONC 34.7 g/dL (31.9-34.8); MEAN CORPUSCULAR VOLUME 88.7 fL (76.7-100.5); MEAN PLATELET VOLUME 10.3 fL (7.1-12.4); MONOCYTES ABSOLUTE AUTO 0.8 x10-3/uL (0.3-1.0); MONOCYTES PERCENT AUTO 9.3 % (4.4-15.7); NEUTROPHILS ABSOLUTE AUTO 4.9 x10-3/uL (1.5-6.3); NEUTROPHILS PERCENT AUTO 59.7 % (30.8-76.2); PLATELET COUNT,PLT 272 x10(3)uL (151-488); RED BLOOD CELL COUNT 4.58 x10(6)uL (3.60-5.20); RED CELL DISTRIBUTION WIDTH 12.3 % (12.3-16.5); WHITE BLOOD CELL COUNT,WBC 8.3 x10-3/uL (3.0-10.3)
[2022-12-12 20:33] LABS: BLOOD UREA NITROGEN,BUN 13 mg/dL (7-18); BUN/CREATININE RATIO 14.4 (9-20); CALCIUM 9.6 mg/dL (8.6-10.2); CARBON DIOXIDE,CO2 26 mmol/L (21-32); CHLORIDE,CL 104 mmol/L (100-110); CREATININE 0.9 mg/dL (0.55-1.02); EST CRCL DRUG DOSING (CG) 91.18 mL/min; ESTIMATED GFR 86 mL/min (>60); GLUCOSE RANDOM 100 mg/dL (80-116); POTASSIUM,K 3.3 mmol/L (3.5-5.3); SODIUM,NA 140 mmol/L (135-145)
[2022-12-12 20:39] LABS: ALANINE AMINOTRANSFERASE,ALT 58 U/L (12-36); ALBUMIN 3.7 g/dL (3.5-5.2); ALKALINE PHOSPHATASE 93 IU/L (56-112); AMYLASE 40 U/L (25-115); ASPARTATE AMNIOTRANSFERASE,AST 13 IU/L (5-25); BILIRUBIN TOTAL 1.1 mg/dL (0.1-1.3); PROTEIN TOTAL,TP 7.4 g/dL (6.0-8.0)
[2022-12-12] MEDS: HYDROmorphone 2 MG/ML SDV IVPUSH STA ×2 (20:44→22:26)
[2022-12-12] MEDS: Ondansetron 4 MG/2 ML SDV IVPUSH ONE ×2 (20:45→22:27)
[2022-12-12 20:47] LABS: BILIRUBIN,URINE NEGATIVE (NEGATIVE); GLUCOSE,URINE NORMAL (NORMAL); KETONES,URINE NEGATIVE (NEGATIVE); LEUKOCYTE ESTERASE,URINE SMALL (NEGATIVE); NITRITE,URINE NEGATIVE (NEGATIVE); OCCULT BLOOD,URINE NEGATIVE (NEGATIVE); PROTEIN,URINE NEGATIVE (NEGATIVE); UROBILINOGEN,URINE NORMAL (NEGATIVE)
[2022-12-12 20:58] LABS: APPEARANCE,URINE SLIGHTLY CLOUDY (CLEAR); BACTERIA,URINE FEW (NS); COLOR,URINE YELLOW (YELLOW); MUCUS,URINE MODERATE (NS); RBC,URINE 0-5 (0-5); SQUAMOUS EPITHELIAL CELLS,UR FEW (NS,R,O); WBC,URINE 0-5 (0-5)
[2022-12-12] MEDS ORDERED: Acetaminophen Soln 160 MG/5 ML UD Cup PO ONE (21:06)
[2022-12-12] MEDS ORDERED: Iopamidol 755 Mg/ML 100 ML Bottle IV SCH (22:15)
[2022-12-12] MEDS ORDERED: HYDROmorphone 2 MG/ML SDV ONE (22:25)
[2022-12-12] MEDS ORDERED: Ondansetron 4 MG/2 ML SDV ONE (22:26)
[2022-12-12] MEDS ORDERED: Ketorolac 30 MG/ML SDV IVPUSH ONE (22:35)
[2022-12-12] MEDS ORDERED: Potassium Chloride 20 MEQ Tab.ER PO ONE (23:20)
[2022-12-13 01:16] VITALS: BP 121/84; PULSE 88
== END 2022-12-12 23:48 | disposition home or self-care (01) ==
LOC: FB.ED 20:09
DX: N39.0 Urinary tract infection, site not specified (principal); E87.6 Hypokalemia; Z95.5 Presence of coronary angioplasty implant and graft; Z79.899 Other long term (current) drug therapy
CPT/HCPCS: 36415; 74177; 80053; 81001; 82150; 83690; 85025; 96361; 96374; 96375; 99284; A9270; J1170; J1885; J2405; J7030; Q0162; Q9967